=== PATIENT | female | born 1980 | race Caucasian/White ===

== ENCOUNTER 2020-09-13 13:16 | Emergency (ER) | payer SELFPAY ==
[2020-09-13] VITALS (7 sets, daily range): BP systolic 116–139; BP diastolic 74–89; PULSE 84–110; RESP 14–16; TEMP 36.8; O2SAT 98–100
--- NOTE | 2020-09-13 14:14 | XRR_ITS ---
PROCEDURE INFORMATION: Exam: XR Chest, 1 View Exam date and time: 09/13/2020 2:17 PM Age: 40 years old Clinical indication: Dyspnea; Additional info: Seizure TECHNIQUE: Imaging protocol: XR of the chest Views: 1 view. COMPARISON: No relevant prior studies available. FINDINGS: Lungs: Unremarkable. No consolidation. Pleural space: Unremarkable. No pleural effusion. No pneumothorax. Heart/Mediastinum: Unremarkable. No cardiomegaly. Bones/joints: Unremarkable. XR/XR chest 1V portable [id number] IMPRESSION: No acute findings.
--- NOTE | 2020-09-13 14:14 | CTR_ITS ---
PROCEDURE INFORMATION: Exam: CT Head Without Contrast Exam date and time: 09/13/2020 2:52 PM Age: 40 years old Clinical indication: Other: Seizure TECHNIQUE: Imaging protocol: Computed tomography of the head without contrast. Radiation optimization: All CT scans at this facility use at least one of these dose optimization techniques: automated exposure control; mA and/or kV adjustment per patient size (includes targeted exams where dose is matched to clinical indication); or iterative reconstruction. COMPARISON: No relevant prior studies available. RADIATION DOSE METRICS: Total DLP (mGy-cm): 762.76 FINDINGS: Brain: There is heterogeneous density with associated vasogenic edema centered in the left temporal lobe measuring 7.0 x 4.6 cm in AP/transverse dimensions. There is local sulcal effacement as well as a 4 mm rightward midline shift. Right lateral ventricle is effaced. Temporal lobe is displaced medially. Suprasellar and perimesencephalic cisterns are effaced. 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 Benign globus pallidus calcifications are present. Cerebral ventricles: See Brain finding. Bones/joints: Unremarkable. No acute fracture. Paranasal sinuses: Visualized sinuses are unremarkable. No fluid levels. Mastoid air cells: Visualized mastoid air cells are well aerated. Soft tissues: Unremarkable. CT/CT head wo con* [id number] IMPRESSION: There is a heterogeneous lesion with associated vasogenic edema with the epicenter in the left temporal lobe with local sulcal effacement and a rightward midline shift. 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 Top differential is neoplasm. Radiation Dose CTDIVOL = (mGy): DLP = 762.76 (mGy-cm)
[2020-09-13 14:39] LABS: Basophils # 0.1 10^3/uL (0.0-0.1); Basophils % 0.9 %; Eosinophils # 0.1 10^3/uL (0.0-0.8); Eosinophils % 1.3 %; Hematocrit 44.6 % (37.0-47.0); Hemoglobin 15.2 g/dL (11.5-15.3); Lymphocytes # 1.7 10^3/uL (0.8-4.8); Lymphocytes % 25.3 %; Mean Corpuscular HGB Conc 34.1 g/dL (30.0-36.0); Mean Corpuscular Hemoglobin 30.6 pg (28.0-34.0); Mean Corpuscular Volume 89.7 fL (81-99); Mean Platelet Volume 11.3 fL (7.4-10.4); Monocytes # 0.5 10^3/uL (0.2-0.9); Neutrophils % 65.4 %; Nucleated Red Blood Cells % 0 %; Platelet Count 305 10^3/cmm (130-400); Red Blood Count 4.97 10^6/uL (4.1-5.3); Red Cell Distribution Width 11.9 % (12.1-15.1); White Blood Count 6.7 10^3/uL (4.0-10.0)
[2020-09-13 14:52] LABS: HCG Qualitative Urine. Negative (Negative)
--- NOTE | 2020-09-13 15:02 | CTR_ITS ---
PROCEDURE INFORMATION: Exam: CT Head With Contrast Exam date and time: 09/13/2020 3:05 PM Age: 40 years old Clinical indication: Other: Seizure; Additional info: Brain mass TECHNIQUE: Imaging protocol: Computed tomography of the head with intravenous contrast. Radiation optimization: All CT scans at this facility use at least one of these dose optimization techniques: automated exposure control; mA and/or kV adjustment per patient size (includes targeted exams where dose is matched to clinical indication); or iterative reconstruction. Contrast material: OMNIPAQUE 300; Contrast volume: 95 ml; Contrast route: INTRAVENOUS (IV); COMPARISON: CT head wo con* [id number] 09/13/2020 2:47 PM RADIATION DOSE METRICS: Total DLP (mGy-cm): 760.56 FINDINGS: Brain: No significant enhancement in the mass lesion with the epicenter in the left temporal lobe with surrounding vasogenic edema. The region of edema measures 7.0 x 4.6 cm in AP/transverse dimensions. There is local mass effect and a 4 mm rightward midline shift. There are findings consistent with unilateral descending transtentorial herniation as was described on the prior report. Suprasellar and perimesencephalic cisterns are effaced. Temporal lobe is displaced medially. Benign globus pallidus calcifications are present. Cerebral ventricles: Unremarkable. No ventriculomegaly. Bones/joints: Unremarkable. No acute fracture. Paranasal sinuses: Visualized sinuses are unremarkable. No fluid levels. Mastoid air cells: Visualized mastoid air cells are well aerated. Soft tissues: Unremarkable. CT/CT head w con [id number] IMPRESSION: There is no significant enhancement in the mass lesion in the left temporal lobe. Top differential is low-grade glioma. MRI of the brain with contrast may be helpful for further evaluation. There is local mass effect and a 4 mm rightward midline shift. Radiation Dose CTDIVOL = (mGy): DLP = 760.56 (mGy-cm)
[2020-09-13] MEDS: iohexol 300 mg/mL 100 mL Btl IV (15:06)
[2020-09-13 15:25] LABS: NT Pro B Type Natriuretic Pept 30 pg/mL (0-125); Procalcitonin 0.02 ng/mL (0-0.5); Thyroid Stimulating Hormone 5.42 uIU/mL (0.27-4.20)
[2020-09-13 15:37] LABS: Alanine Aminotransferase 16 U/L (0-33); Albumin Level 4.8 g/dL (3.5-5.2); Alkaline Phosphatase 64 IU/L (35-105); Anion Gap 19.4 (5-19); Aspartate Amino Transferase 15 U/L (0-32); Blood Urea Nitrogen 9 mg/dL (6-20); C Reactive Protein 0.8 mg/L (0.0-4.9); Calcium 9.6 mg/dL (8.5-10.5); Carbon Dioxide 22 mmol/L (22-29); Chloride 99 mmol/L (98-107); Creatine Phosphokinase 68 U/L (26-192); Globulin 3.3 g/dL (1.3-4.6); Glomerular Filtration Rate 93.6 mL/min (90-130); Glucose 97 mg/dL (65-115); Lipase 30 U/L (13-60); Magnesium 1.8 mg/dL (1.7-2.3); Osmolality Calculated 283 mOsm/kg (285-295); Phosphorus 2.5 mg/dL (2.5-4.5); Potassium 3.4 mmol/L (3.5-5.1); Sodium 137 mmol/L (136-145); Total Bilirubin 0.3 mg/dL (0.15-1.2); Total Protein 8.1 g/dL (6.6-8.7)
[2020-09-13 16:24] LABS: Lactate (Lactic Acid level) 0.9 mmol/L (0.5-2.2)
[2020-09-13 16:55] LABS: SARS Covid-2 Antigen Negative (Negative)
--- NOTE | 2020-10-03 11:07 | W.ED.SEIZURE ---
HPI - Seizure General: Chief Complaint: Seizure Stated Complaint: SEIZURE Time Seen by Provider: 09/13/20 13:23 Source: patient and family () Mode of arrival: EMS Limitations: no limitations History of Present Illness: HPI Narrative: Patient is a 40-year-old female with no past medical history who presents to the emergency department following a seizure. She was in [employer] in the [employer] and last thing she remembers is a sensation of falling. Her was present and noted that she had tonic-clonic episodes. No seizure lasted less than 1 minute and probably about 50 seconds. She was postictal after the episode for at least 15 minutes before she started to become more with it. She bit her tongue during the episode. MD complaint: seizure Onset (ago): minute(s) (30) Description of Episode: tonic-clonic movement Duration of episode: 50 -: second(s) Witnessed: Yes - by Other ( and other people in the restorationism) Trauma: No Seizure History: No Place: [employer] Possible Precipitating Event: none Associated symptoms: Deny chest pain, chills, confusion, cough, diaphoresis, fever(s), anorexia, malaise, rash, short of breath, syncope or weakness Treatments prior to arrival: none Review of Systems General: Reports: 10 or more systems reviewed and unremarkable except in HPI and below Const: Denies: fever(s), chills, malaise or diaphoresis Eyes: Denies: change in vision or blurry vision ENMT: Denies: throat pain, enlarged tonsils, odynophagia, hoarseness, mouth pain or swelling of lips/tongue Card: Denies: chest pain or syncope Resp: Denies: dyspnea, productive cough or non-productive cough GI: Denies: abdominal pain, nausea or vomiting : Denies: flank pain, difficulty voiding, dysuria, urinary frequency, urinary urgency or urinary hesitancy Musc: Denies: neck pain, back pain or extremity swelling Skin/Breast: Denies: rash, pruritus or erythema Neuro: Reports: headache(s); Denies: numbness in extremities, weakness in extremities, sensory changes, frequent falls or confusion Endo: Denies: polyuria, polydipsia or tired all the time Physical Exam Const: COMMON NORMALS: no acute distress, average body habitus, patient oriented x3, no limitations, healthy appearing, alert and well nourished HENMT: COMMON NORMALS: normocephalic, atraumatic and moist oral mucous membranes HEAD & SCALP: normocephalic and atraumatic Eye: COMMON NORMALS: Equal, round and reactive pupils present, EOMs intact bilaterally, conjunctivae normal and no scleral icterus CONJUNCTIVA: Yes conjunctivae normal PUPIL: Yes Equal, round and reactive pupils present Neck/C-Spine: COMMON NORMALS: full ROM, supple, no meningeal signs, no JVD and No carotid bruits Resp: COMMON NORMALS: normal respiratory effort, No retractions, No use of accessory muscles, clear to auscultation bilaterally and percussion normal AUSCULTATION: clear to auscultation bilaterally PERCUSSION: percussion normal Cardio: COMMON NORMALS: no JVD, regular rate, regular rhythm, S1 normal heart sound present, S2 normal heart sound present, No gallops present (Cardio), No clicks present (Cardio), No murmurs present (Cardio), No rub (Cardio) and Peripheral pulses 2+ throughout RATE: regular rate RHYTHM: regular rhythm HEART SOUNDS: S1 normal heart sound present and S2 normal heart sound present PERIPHERAL PULSES: Peripheral pulses 2+ throughout GI: COMMON NORMALS: Normal to inspection, nondistended, normoactive bowel sounds present, Soft to palpation, non-tender, No hepatosplenomegaly present, no masses and no bruits PALPATION: Yes Soft to palpation and Yes No hepatosplenomegaly present Extremity: COMMON NORMALS: normal to inspection, full ROM, capillary refill normal, no calf tenderness and no pedal edema Neuro: COMMON NORMALS: patient oriented x3 SENSORIUM/ORIENTATION: Yes alert MENINGEAL SIGNS: Yes no meningeal signs Skin: COMMON NORMALS: no rashes or lesions noted, no wounds, turgor normal, no jaundice, no petechiae and no mottling GENERAL SKIN EXAM: no rashes or lesions noted and turgor normal Course ED course: This unfortunate 40-year-old female patient was in [employer] when she had a sudden onset of a seizure. She has no prior seizure history. 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 The patient was given dexamethasone in the emergency department and transferred to [facility] under the care of the neurosurgeon for further evaluation and management. Vital Signs: Vital signs: Vital Signs Temperature 98.2 F 09/13/20 13:25 Pulse Rate 85 09/13/20 17:50 Respiratory Rate 14 09/13/20 17:00 Blood Pressure 116/87 09/13/20 17:50 Pulse Oximetry 98 09/13/20 17:50 MDM - Seizure MDM Narrative: Medical decision making narrative: 40-year-old female patient who had a seizure in [employer] and on evaluation in the emergency department she has a left temporal mass with the right midline shift. In the emergency department she was alert and oriented and all her vital signs were stable. She was given a dose of intravenous dexamethasone and transferred to [facility] for further evaluation and management by neurosurgery. Medical Records: Attestation: I reviewed the patient's medical records. Lab Data: Attestation: I reviewed the patient's lab results. Labs: Lab Results 09/13/20 09/13/20 09/13/20 Range/Units 12:25 12:25 14:40 WBC 6.7 (4.0-10.0) 10^3/ uL RBC 4.97 (4.1-5.3) 10^6/u L Hgb 15.2 (11.5-15.3) g/dL Hct 44.6 (37.0-47.0) % MCV 89.7 (81-99) fL MCH 30.6 (28.0-34.0) pg MCHC 34.1 (30.0-36.0) g/dL RDW 11.9 L (12.1-15.1) % Plt Count 305 (130-400) 10^3/c mm MPV 11.3 H (7.4-10.4) fL Neut % (Auto) 65.4 % Lymph % (Auto) 25.3 % Wilkin % (Auto) 7.0 % Eos % (Auto) 1.3 % Baso % (Auto) 0.9 % Neut # (Auto) 4.40 (1.8-7.7) 10^3/u L Lymph # (Auto) 1.7 (0.8-4.8) 10^3/u L Wilkin # (Auto) 0.5 (0.2-0.9) 10^3/u L Eos # (Auto) 0.1 (0.0-0.8) 10^3/u L Baso # (Auto) 0.1 (0.0-0.1) 10^3/u L Nucleated RBC % (a uto) 0 % Nucleated RBCs # 0.0 /100WBC Sodium 137 (136-145) mmol/L Potassium 3.4 L (3.5-5.1) mmol/L Chloride 99 (98-107) mmol/L Carbon Dioxide 22 (22-29) mmol/L Anion Gap 19.4 H (5-19) BUN 9 (6-20) mg/dL Creatinine 0.7 (0.5-0.9) mg/dL GFR Calculation 93.6 (90-130) mL/min Glucose 97 (65-115) mg/dL Calculated Osmolal ity 283 L (285-295) mOsm/k g Lactate (0.5-2.2) mmol/L Calcium 9.6 (8.5-10.5) mg/dL Phosphorus 2.5 (2.5-4.5) mg/dL Magnesium 1.8 (1.7-2.3) mg/dL Total Bilirubin 0.3 (0.15-1.2) mg/dL AST 15 (0-32) U/L ALT 16 (0-33) U/L Alkaline Phosphata se 64 (35-105) IU/L Creatine Kinase 68 (26-192) U/L C-Reactive Protein 0.8 (0.0-4.9) mg/L NT-Pro-B Natriuret Pep 30 (0-125) pg/mL Total Protein 8.1 (6.6-8.7) g/dL Albumin 4.8 (3.5-5.2) g/dL Globulin 3.3 (1.3-4.6) g/dL Lipase 30 (13-60) U/L Procalcitonin 0.02 (0-0.5) ng/mL TSH 5.42 H (0.27-4.20) uIU/ mL HCG, Qual Negative (Negative) SARS-CoV-2 Ag (Rap id) (Negative) 09/13/20 09/13/20 Range/Units 15:36 16:16 WBC (4.0-10.0) 10^3/ uL RBC (4.1-5.3) 10^6/u L Hgb (11.5-15.3) g/dL Hct (37.0-47.0) % MCV (81-99) fL MCH (28.0-34.0) pg MCHC (30.0-36.0) g/dL RDW (12.1-15.1) % Plt Count (130-400) 10^3/c mm MPV (7.4-10.4) fL Neut % (Auto) % Lymph % (Auto) % Wilkin % (Auto) % Eos % (Auto) % Baso % (Auto) % Neut # (Auto) (1.8-7.7) 10^3/u L Lymph # (Auto) (0.8-4.8) 10^3/u L Wilkin # (Auto) (0.2-0.9) 10^3/u L Eos # (Auto) (0.0-0.8) 10^3/u L Baso # (Auto) (0.0-0.1) 10^3/u L Nucleated RBC % (a uto) % Nucleated RBCs # /100WBC Sodium (136-145) mmol/L Potassium (3.5-5.1) mmol/L Chloride (98-107) mmol/L Carbon Dioxide (22-29) mmol/L Anion Gap (5-19) BUN (6-20) mg/dL Creatinine (0.5-0.9) mg/dL GFR Calculation (90-130) mL/min Glucose (65-115) mg/dL Calculated Osmolal ity (285-295) mOsm/k g Lactate 0.9 (0.5-2.2) mmol/L Calcium (8.5-10.5) mg/dL Phosphorus (2.5-4.5) mg/dL Magnesium (1.7-2.3) mg/dL Total Bilirubin (0.15-1.2) mg/dL AST (0-32) U/L ALT (0-33) U/L Alkaline Phosphata se (35-105) IU/L Creatine Kinase (26-192) U/L C-Reactive Protein (0.0-4.9) mg/L NT-Pro-B Natriuret Pep (0-125) pg/mL Total Protein (6.6-8.7) g/dL Albumin (3.5-5.2) g/dL Globulin (1.3-4.6) g/dL Lipase (13-60) U/L Procalcitonin (0-0.5) ng/mL TSH (0.27-4.20) uIU/ mL HCG, Qual (Negative) SARS-CoV-2 Ag (Rap id) Negative (Negative) Imaging Data^: CT Head: Radiologist's impression: [address] [address] [address] Scan Report Signed Patient: Shiela Ward #: [id number] : 1980Acct#:[id number] Age/Sex: 40 / FADM Date: 09/13/20 Loc: ERRoom/Bed: Attending Dr: Ordering Provider/Ordering MD: Mary Suggs [place] [facility] [place] Service: 09/13/20 Procedure(s): CT head w con [id number] Accession Number(s): [id number] Report Number: [id number] PROCEDURE INFORMATION: Exam: CT Head With Contrast Exam date and time: 09/13/2020 3:05 PM Age: 40 years old Clinical indication: Other: Seizure; Additional info: Brain mass TECHNIQUE: Imaging protocol: Computed tomography of the head with intravenous contrast. Radiation optimization: All CT scans at this facility use at least one of these dose optimization techniques: automated exposure control; mA and/or kV adjustment per patient size (includes targeted exams where dose is matched to clinical indication); or iterative reconstruction. Contrast material: OMNIPAQUE 300; Contrast volume: 95 ml; Contrast route: INTRAVENOUS (IV); COMPARISON: CT head wo con* [id number] 09/13/2020 2:47 PM RADIATION DOSE METRICS: Total DLP (mGy-cm): 760.56 FINDINGS: Brain: No significant enhancement in the mass lesion with the epicenter in the left temporal lobe with surrounding vasogenic edema. The region of edema measures 7.0 x 4.6 cm in AP/transverse dimensions. There is local mass effect and a 4 mm rightward midline shift. There are findings consistent with unilateral descending transtentorial herniation as was described on the prior report. Suprasellar and perimesencephalic cisterns are effaced. Temporal lobe is displaced medially. Benign globus pallidus calcifications are present. Cerebral ventricles: Unremarkable. No ventriculomegaly. Bones/joints: Unremarkable. No acute fracture. Paranasal sinuses: Visualized sinuses are unremarkable. No fluid levels. Mastoid air cells: Visualized mastoid air cells are well aerated. Soft tissues: Unremarkable. CT/CT head w con [id number] IMPRESSION: There is no significant enhancement in the mass lesion in the left temporal lobe. Top differential is low-grade glioma. MRI of the brain with contrast may be helpful for further evaluation. There is local mass effect and a 4 mm rightward midline shift. Radiation Dose CTDIVOL = (mGy): DLP = 760.56 (mGy-cm) Dictated By:Reva Richardson MD Signed By:Reva Richardson MDSigned Date/Time:09/13/20 1534 DD/ 1533 CXR: Radiologist's impression: [address] [address] XRay Report Signed Patient: Shiela Ward #: [id number] : 1980Acct#:[id number] Age/Sex: 40 / FADM Date: 09/13/20 Loc: ERRoom/Bed: Attending Dr: Ordering Provider/Ordering MD: Mary Suggs [place] [facility] [place] of Service: 09/13/20 Procedure(s): XR chest 1V portable [id number] Accession Number(s): [id number] Report Number: [id number] PROCEDURE INFORMATION: Exam: XR Chest, 1 View Exam date and time: 09/13/2020 2:17 PM Age: 40 years old Clinical indication: Dyspnea; Additional info: Seizure TECHNIQUE: Imaging protocol: XR of the chest Views: 1 view. COMPARISON: No relevant prior studies available. FINDINGS: Lungs: Unremarkable. No consolidation. Pleural space: Unremarkable. No pleural effusion. No pneumothorax. Heart/Mediastinum: Unremarkable. No cardiomegaly. Bones/joints: Unremarkable. XR/XR chest 1V portable [id number] IMPRESSION: No acute findings. Dictated By:Reva Richardson MD Signed By:Reva Richardson MDSigned Date/Time:09/13/20 1451 DD/ 1450 Discharge Plan Discharge Patient Disposition: Xfer Short-Term Hosp Clinical Impression: Brain mass, Seizure Condition: Stable Discharge Orders: Transfer Out of Facility (Order); Ordered 10/03/20 Ordered By: Mary Suggs Coding Level of Care Code ED Lou[facility] Mortiser Operator for Shaan Singh
== END 2020-09-13 17:55 | disposition short-term general hospital (02) ==
PROVIDERS: Emergency Provider Family Medicine
DX: R56.9 Unspecified convulsions (principal); G93.9 Disorder of brain, unspecified
CPT/HCPCS: 12345; 70450; 70460; 71045; 80053; 81025; 82550; 83605; 83690; 83735; 83880; 84100; 84145; 84443; 85025; 86140; 87426; 96374; 99283; 99291; Q9967